=== PATIENT | male | born 1950 | race Caucasian/White ===

== ENCOUNTER 2016-08-07 07:28 | Day surgery (SDC) | payer MEDICARE, OTHER ==
[2016-08-07] MEDS ORDERED: Lactated Ringers 1,000 ML IV SCH (08:00)
[2016-08-07] MEDS ORDERED: Sodium Chloride 0.9% 10 ML Syringe FLUSH PRN (08:00)
[2016-08-07] MEDS ORDERED: Citric Acid/Sodium Citrate Solution 30 ML Cup PO ONE (08:55)
[2016-08-07] MEDS ORDERED: fentaNYL 100 MCG/2 ML SDV ONE (09:10)
[2016-08-07] MEDS ORDERED: Propofol 200 MG/20 ML SDV ONE (09:10)
[2016-08-07 10:25] VITALS: BP 129/68
--- NOTE | 2016-08-08 07:43 | OR ---
PREOPERATIVE DIAGNOSIS: Screening colonoscopy. POSTOPERATIVE DIAGNOSIS: Screening colonoscopy. PROCEDURE PERFORMED: Screening colonoscopy. INDICATION: The patient is a 66-year-old male. His last colonoscopy was several years ago which was normal. He presents for repeat screening colonoscopy at this time. PROCEDURE IN DETAIL: The patient was brought to the endoscopy suite. Sedation was given per Anesthesia. He was placed in left lateral position. First, a rectal exam was done and was normal. Scope was introduced in the rectum, slowly advanced through the rectum, sigmoid, descending, transverse, and ascending colon until the cecum was reached. Upon reaching the cecum, scope was slowly withdrawn looking at all mucosal surfaces on the way out. No mucosal abnormalities lesions or polyps were noted. FINAL DIAGNOSIS: Normal colonoscopy. BKD: 08/07/2016 09:42:26 MODL: 08/07/2016 19:33:58 /[id number]
== END 2016-08-07 11:05 | disposition home or self-care (01) ==
LOC: VM.SDS 07:28
PROVIDERS: ATTEND Surgery
DX: Z12.11 Encounter for screening for malignant neoplasm of colon (principal); I25.10 Atherosclerotic heart disease of native coronary artery without angina pectoris; E11.9 Type 2 diabetes mellitus without complications; K21.9 Gastro-esophageal reflux disease without esophagitis; I10 Essential (primary) hypertension; E78.5 Hyperlipidemia, unspecified; Z88.8 Allergy status to other drugs, medicaments and biological substances; Z98.890 Other specified postprocedural states; Z79.899 Other long term (current) drug therapy; L85.9 Epidermal thickening, unspecified; Z79.4 Long term (current) use of insulin; Z79.82 Long term (current) use of aspirin
CPT/HCPCS: 00810; 82962; A9270; G0121; J2704; J3010; J7120

== ENCOUNTER 2022-08-11 04:35 | Emergency (ER) | payer MEDICARE, OTHER ==
[2022-08-11 05:36] VITALS: BP 162/75; PULSE 72
== END 2022-08-11 06:00 | disposition home or self-care (01) ==
LOC: VM.ED 04:35
DX: E11.649 Type 2 diabetes mellitus with hypoglycemia without coma (principal); I25.10 Atherosclerotic heart disease of native coronary artery without angina pectoris; I25.2 Old myocardial infarction; E78.5 Hyperlipidemia, unspecified; K21.9 Gastro-esophageal reflux disease without esophagitis; Z88.5 Allergy status to narcotic agent; Z88.1 Allergy status to other antibiotic agents; Z88.8 Allergy status to other drugs, medicaments and biological substances; Z79.82 Long term (current) use of aspirin; Z79.4 Long term (current) use of insulin; Z79.899 Other long term (current) drug therapy
CPT/HCPCS: 82947; 99283; 99284

== ENCOUNTER 2023-03-26 13:54 | Emergency (ER) | payer MEDICARE, OTHER ==
[2023-03-26 14:19] VITALS: BP 118/41; PULSE 89
[2023-03-26 14:35] LABS: BASOPHILS PERCENT AUTO 0.1 % (0.2-1.2); EOSINOPHILS ABSOLUTE AUTO 0.1 x10^3/uL (0.0-0.5); HEMOGLOBIN 9.2 g/dL (14.0-18.0); IMMATURE GRAN ABSOLUTE AUTO 0.02 x10^3/uL (0.00-0.07); LYMPHOCYTES ABSOLUTE AUTO 0.7 x10^3/uL (1.0-4.8); LYMPHOCYTES PERCENT AUTO 7.3 % (25.0-50.0); MEAN CORPUSCULAR HEMOGLOBIN 28.7 pg (26.0-32.0); MEAN CORPUSCULAR HGB CONC 31.7 g/dL (32.0-36.0); MEAN CORPUSCULAR VOLUME 90.3 fL (78.0-93.0); MONOCYTES ABSOLUTE AUTO 1.2 x10^3/uL (0.0-0.8); MONOCYTES PERCENT AUTO 11.6 % (2.0-11.0); NEUTROPHILS ABSOLUTE AUTO 7.9 x10^3/uL (1.8-7.7); NEUTROPHILS PERCENT AUTO 79.8 % (50.0-80.0); RED BLOOD CELL COUNT 3.21 x10^6/uL (4.5-6.0); WHITE BLOOD CELL COUNT,WBC 9.9 x10^3/uL (4.0-10.0)
[2023-03-26 14:45] LABS: PLATELET COUNT,PLT 207 x10^3/uL (130-400)
[2023-03-26 14:50] LABS: A/G RATIO 0.62; ALANINE AMINOTRANSFERASE,ALT 18 U/L (16-63); ALBUMIN 2.6 g/dL (3.4-5.0); ALKALINE PHOSPHATASE 113 U/L (46-116); ASPARTATE AMNIOTRANSFERASE,AST 13 U/L (15-37); BILIRUBIN TOTAL 0.3 mg/dL (0.2-1.0); BLOOD UREA NITROGEN,BUN 38 mg/dL (7-18); CALCIUM 9.1 mg/dL (8.5-10.1); CARBON DIOXIDE,CO2 22 mmol/L (21-32); CHLORIDE,CL 105 mmol/L (98-107); CREATININE 2.9 mg/dL (0.70-1.30); GLUCOSE RANDOM 118 mg/dL (70-99); POTASSIUM,K 3.9 mmol/L (3.5-5.1); PROTEIN TOTAL,TP 6.8 g/dL (6.4-8.2); SODIUM,NA 142 mmol/L (136-145)
[2023-03-26 14:51] LABS: ANION GAP 18.9 mmol/L (5-15); ESTIMATED GFR 22 mL/min (>=60)
[2023-03-26 14:52] LABS: APPEARANCE,URINE TURBID (CLEAR); BACTERIA,URINE FEW /HPF (NOT SEEN); BILIRUBIN,URINE MODERATE (NEGATIVE); COLOR,URINE RED (YELLOW); GLUCOSE,URINE NEGATIVE (NEGATIVE); KETONES,URINE TRACE mg/dL (NEGATIVE); LEUKOCYTE ESTERASE,URINE LARGE (NEGATIVE); MUCUS,URINE OCCASIONAL /LPF (NOT SEEN); NITRITE,URINE POSITIVE (NEGATIVE); OCCULT BLOOD,URINE LARGE (NEGATIVE); PH,URINE 6.5 (5.0-8.0); PROTEIN,URINE >=300 mg/dL (NEGATIVE); RBC,URINE PACKED /HPF (NOT SEEN); WBC,URINE 40-50 /HPF (NOT SEEN)
[2023-03-26 14:56] LABS: INR 0.9 (0.9-1.1); PROTHROMBIN TIME 10.2 SEC (9.5-12.2); PTT,PARTIAL THROMBOPLSTIN TIME 31.2 SEC (23.6-33.6)
[2023-03-26] MEDS: cefTRIAXone 2 GM, Lidocaine 1% 4.2 ML IM ONE ×2 (15:14)
== END 2023-03-26 15:30 | disposition home or self-care (01) ==
LOC: VM.ED 13:54
DX: N30.01 Acute cystitis with hematuria (principal); I25.2 Old myocardial infarction; I25.10 Atherosclerotic heart disease of native coronary artery without angina pectoris; K21.9 Gastro-esophageal reflux disease without esophagitis; E11.9 Type 2 diabetes mellitus without complications; Z79.82 Long term (current) use of aspirin; Z79.84 Long term (current) use of oral hypoglycemic drugs; Z79.899 Other long term (current) drug therapy; Z88.8 Allergy status to other drugs, medicaments and biological substances
CPT/HCPCS: 36415; 80053; 81001; 85025; 85610; 85730; 87086; 96372; 99283; 99284; J0696; J3490